=== PATIENT | female | born 1990 | race Caucasian/White ===

== ENCOUNTER 2018-03-31 17:32 | Inpatient (IN) | payer OTHER ==
[2018-03-31] MEDS ORDERED: BUTORPHANOL 2 MG INJ IV (18:30)
[2018-03-31] MEDS ORDERED: CARBOPROST 250 MCG INJ IM (18:30)
[2018-03-31] MEDS ORDERED: LIDOCAINE 1% (MPF) 30 ML INJ INJ (18:30)
[2018-03-31] MEDS ORDERED: OXYTOCIN 30 UNITS/LR 500 ML IV (18:30)
[2018-03-31] MEDS ORDERED: METHYLERGONOVINE 0.2 MG INJ IM (18:30)
[2018-03-31] MEDS ORDERED: BUTORPHANOL 1 MG INJ IV (18:30)
[2018-03-31] MEDS ORDERED: MISOPROSTOL 200 MCG TAB PR (18:30)
[2018-03-31] MEDS: LACTATED RINGER'S 1,000 ML IV* (20:40)
[2018-03-31 21:21] LABS: ADD MAN DIFF? NO
[2018-03-31 21:23] LABS: WHITE BLOOD COUNT 10.3 10^3/ul (4.8-10.8)
[2018-03-31 21:23] LABS: BASOPHIL # 0.1 10^3/ul (0.0-0.1); BASOPHILS % 0.7 % (0.0-2.0); EOSINOPHILS # 0.3 10^3/ul (0.0-0.5); HEMATOCRIT 38.4 % (37.0-47.0); HEMOGLOBIN 12.9 g/dl (12.0-16.0); LYMPHOCYTES # 3.2 10^3/ul (0.8-2.9); LYMPHOCYTES % 31.1 % (15.0-51.0); MEAN CORPUSCULAR HEMOGLOBIN 28.3 pg (29.0-33.0); MEAN CORPUSCULAR HGB CONC 33.6 g/dl (32.0-37.0); MEAN CORPUSCULAR VOLUME 84.2 fl (82.0-101.0); MEAN PLATELET VOLUME 10.3 fl (7.4-10.4); MONOCYTE # 1.1 10^3/ul (0.3-0.9); NEUTROPHIL # 5.4 10^3/ul (1.6-7.5); NEUTROPHILS % 52.5 % (39.0-77.0); PLATELET COUNT 214 10^3/UL (140-415); RED BLOOD COUNT 4.56 10^6/ul (4.20-5.40); RED CELL DISTRIBUTION WIDTH 13.2 % (11.5-14.5)
[2018-03-31] MEDS: OXYTOCIN 30 UNITS/LR 500 ML IV (21:32)
[2018-03-31 21:55] LABS: INR 0.95; PROTIME 12.8 Sec (11.9-14.9)
[2018-03-31 21:56] LABS: PARTIAL THROMBOPLASTIN TIME 24.7 Sec (25.0-35.0)
[2018-04-01] MEDS: LACTATED RINGER'S 1,000 ML IV* ×3 (00:03→07:19)
[2018-04-01] MEDS ORDERED: FENTAnyl 2MCG/ML-ROPIV 0.2% 100 ML (00:11)
[2018-04-01] MEDS ORDERED: NALOXONE (0.4 MG/ML) INJ IV (00:30)
[2018-04-01] MEDS ORDERED: FENTAnyl 2MCG/ML-ROPIV 0.2% 100 ML BAG EPI (00:30)
[2018-04-01] MEDS ORDERED: ONDANSETRON 4 MG INJ IV ×2 (00:30→13:00)
[2018-04-01] MEDS ORDERED: DIPHENHYDRAMINE 50 MG INJ IV (00:30)
[2018-04-01] MEDS ORDERED: MINERAL OIL LIGHT 10 ML VIAL TOP (09:25)
[2018-04-01 09:42] LABS: HEPATITIS B SURFACE ANTIGEN NEGATIVE (NEGATIVE)
[2018-04-01] MEDS: OXYTOCIN 30 UNITS/LR 500 ML IV ×2 (10:32→12:47)
[2018-04-01] MEDS: IBUPROFEN 600 MG TAB PO ×3 (12:59→23:49)
[2018-04-01] MEDS ORDERED: ACETAMINOPHEN 325 MG TAB PO (13:00)
[2018-04-01] MEDS ORDERED: OXYCODONE/ASPIRIN (4.88/325) TAB PO ×2 (13:00)
[2018-04-01 16:22] LABS: RAPID PLASMA REAGIN NONREACTIVE (NR)
[2018-04-01] MEDS: WITCH HAZEL/GLYCERIN PAD PR (18:31)
[2018-04-01] MEDS: BENZOCAINE 20% 56 ML SPRAY TOP (18:31)
[2018-04-01] MEDS: LANOLIN 7 GM TUBE TOP (18:31)
[2018-04-01] MEDS: HYDROCODONE/APAP (5/325) TAB PO (20:16)
[2018-04-01] MEDS: SENNA/DOCUSATE NA (8.6MG/50MG) TAB PO (20:46)
[2018-04-02] MEDS: HYDROCODONE/APAP (5/325) TAB PO ×3 (03:35→22:05)
[2018-04-02] MEDS: IBUPROFEN 600 MG TAB PO ×4 (05:37→23:20)
[2018-04-02 06:42] LABS: ADD MAN DIFF? NO
[2018-04-02 06:47] LABS: BASOPHIL # 0.1 10^3/ul (0.0-0.1); BASOPHILS % 0.4 % (0.0-2.0); EOSINOPHILS # 0.4 10^3/ul (0.0-0.5); HEMATOCRIT 30.3 % (37.0-47.0); HEMOGLOBIN 10.1 g/dl (12.0-16.0); LYMPHOCYTES # 3.9 10^3/ul (0.8-2.9); LYMPHOCYTES % 29.2 % (15.0-51.0); MEAN CORPUSCULAR HEMOGLOBIN 28.1 pg (29.0-33.0); MEAN CORPUSCULAR HGB CONC 33.3 g/dl (32.0-37.0); MEAN CORPUSCULAR VOLUME 84.4 fl (82.0-101.0); MEAN PLATELET VOLUME 10.2 fl (7.4-10.4); MONOCYTE # 1.2 10^3/ul (0.3-0.9); MONOCYTES % 9.1 % (0.0-11.0); NEUTROPHIL # 7.6 10^3/ul (1.6-7.5); NEUTROPHILS % 56.9 % (39.0-77.0); PLATELET COUNT 169 10^3/UL (140-415); RED BLOOD COUNT 3.59 10^6/ul (4.20-5.40); RED CELL DISTRIBUTION WIDTH 13.3 % (11.5-14.5)
[2018-04-02 06:47] LABS: WHITE BLOOD COUNT 13.3 10^3/ul (4.8-10.8)
[2018-04-02] MEDS: SENNA/DOCUSATE NA (8.6MG/50MG) TAB PO ×2 (08:56→21:27)
[2018-04-03] MEDS: IBUPROFEN 600 MG TAB PO ×2 (05:17→12:13)
[2018-04-03] MEDS: SENNA/DOCUSATE NA (8.6MG/50MG) TAB PO (09:21)
[2018-04-03] MEDS: MEASLES,MUMPS,RUBELLA VACCINE INJ SC* (09:22)
[2018-04-03] MEDS: DIBUCAINE 1% 30 GM OINT PR (11:23)
== END 2018-04-03 17:37 | disposition home or self-care (01) | DRG 775 ==
LOC: L-D 17:32 → PP1 04-01 15:36 → OBT 17:32 → L-D 17:55 → OBT 18:20 → L-D 18:20
PROVIDERS: Obstetrics & Gynecology
PROC: 10E0XZZ Delivery of Products of Conception, External Approach (ICD-10-PCS; principal; 2018-04-01)
PROC: 0HQ9XZZ Repair Perineum Skin, External Approach (ICD-10-PCS; 2018-04-01)
PROC: 0UQMXZZ Repair Vulva, External Approach (ICD-10-PCS; 2018-04-01)
DX: O70.0 First degree perineal laceration during delivery (principal); Z3A.40 40 weeks gestation of pregnancy; Z37.0 Single live birth
CPT/HCPCS: 62319; 85025; 85610; 85730; 86592; 86850; 86900; 86901; 87340